=== PATIENT | female | born 1980 | race Caucasian/White ===

== ENCOUNTER → 2016-07-17 | Outpatient (CLI) | payer OTHER ==
[~2016-07-17] MED LIST: /HALO5TAB OR; ABIL5TAB OR; ATARAX OR; ATIV1TAB2 OR; COGE1INJ PO; DEPA250T2 OR; DEPA250T3 OR; DEPA500T OR; GEOD60CA OR; HALDOL PO; HYDR10TA3 OR; Klonopin; SAPHRIS SL; SERO400T OR; VIST25CA OR; saphris SL
[2016-07-17 15:47] LABS: TOTAL PROTEIN 6.6 GM/DL (6.4-8.2)
== END ==
LOC: M LAB 14:44
PROVIDERS: ATTEND Psychiatry & Neurology Neurology
DX: M54.5 Low back pain (principal)

== ENCOUNTER → 2017-06-05 | Outpatient (REF) | payer OTHER | LOC: M SFHCWAGY 09:25 | PROVIDERS: ATTEND Nurse Practitioner Women's Health | DX: Z12.4 Encounter for screening for malignant neoplasm of cervix (principal) ==

== ENCOUNTER → 2017-11-19 | Outpatient (REF) | payer OTHER ==
[2017-11-19 18:23] LABS: LIPASE 247 U/L (73-393)
[2017-11-19 18:23] LABS: AMYLASE 80 U/L (25-115)
[2017-11-20 08:10] LABS: CONTROL LINE HPYORI INT CTR LINE PRESENT; H PYLORI QUALITATIVE IgG NEGATIVE (NEGATIVE)
== END ==
LOC: M LAB REF 17:38
DX: R10.11 Right upper quadrant pain (principal)

== ENCOUNTER → 2018-01-21 | Outpatient (CLI) | payer OTHER | LOC: M WHC 14:02 | DX: Z30.431 Encounter for routine checking of intrauterine contraceptive device (principal); N92.1 Excessive and frequent menstruation with irregular cycle | CPT/HCPCS: 76830 ==

== ENCOUNTER 2018-09-02 01:37 | Emergency (ER) | payer OTHER ==
[~2018-09-02] VITALS: Ht 162.6 cm; Wt 81.8 kg
[2018-09-02] MEDS ORDERED: FLUO10TA30 (01:49)
[2018-09-02] MEDS ORDERED: LATU80TA PO (01:49)
[2018-09-02] MEDS ORDERED: LUNE3TAB36 PO (01:49)
[2018-09-02] MEDS ORDERED: NAPR-885 (01:49)
[2018-09-02] MEDS ORDERED: ESZO1TAB39 (01:49)
[2018-09-02] MEDS ORDERED: LORazepam 1 MG TAB PO ONE (04:30)
[2018-09-02] MEDS ORDERED: ATIV1TAB7 PO (04:37)
[2018-09-02 04:59] VITALS: BP 136/64
== END 2018-09-02 05:01 | disposition home or self-care (01) ==
LOC: M ED 01:37
DX: F31.9 Bipolar disorder, unspecified (principal); F41.1 Generalized anxiety disorder; Z91.018 Allergy to other foods; Z79.899 Other long term (current) drug therapy; Z79.1 Long term (current) use of non-steroidal anti-inflammatories (NSAID)

== ENCOUNTER → 2018-09-22 | Outpatient (CLI) | payer OTHER ==
[~2018-09-22] MED LIST changes: +ATIV1TAB7 PO; +ESZO1TAB39; +FLUO10TA30; +LATU80TA PO; +LUNE3TAB36 PO; +NAPR-885
[2018-09-22 11:09] LABS: BASO # 0.1 10^3/uL (0.0-0.2); BASO % 2.1 % (0.0-1.0); EOS # 0.2 10^3/uL (0.0-0.50); EOS % 3.6 % (0.0-3.0); HEMATOCRIT 37.5 % (36.0-47.0); LYMPH # 1.8 10^3/uL (1.5-4.5); LYMPH % 37.4 % (24.0-44.0); MEAN CORPUSCULAR HEMOGLOBIN 27.9 pg (27.0-33.0); MEAN CORPUSCULAR VOLUME 87.2 fl (80.0-96.0); MONO # 0.3 10^3/uL (0.0-0.8); MONO % 6.8 % (0.0-5.0); NEUTROPHILS # 2.3 10^3/uL (1.8-7.7); NEUTROPHILS % 49.5 % (36.0-66.0); PLATELET COUNT, AUTOMATED 374 10^3/uL (150-450); WHITE BLOOD COUNT 4.7 10^3/uL (4.0-10.0)
[2018-09-22 11:41] LABS: ALBUMIN 3.2 GM/DL (3.2-5.2); BILIRUBIN,DIRECT 0.2 MG/DL (0.0-0.2); BILIRUBIN,TOTAL 0.6 MG/DL (0.2-1.0); FREE T3 2.5 PG/ML (2.2-4.0); THYROID STIMULATING HORMONE 0.804 uIU/ML (0.358-3.740); THYROXINE (T4) 8.3 UG/DL (4.5-12.0); TOTAL PROTEIN 6.3 GM/DL (6.4-8.2); VALPROIC ACID (DEPAKOTE) 58.9 UG/ML (50.0-100.0)
== END ==
LOC: M LAB 10:44
PROVIDERS: ATTEND Anesthesiology Pain Medicine
DX: Z79.899 Other long term (current) drug therapy (principal)

== ENCOUNTER → 2019-03-08 | Outpatient (CLI) | payer OTHER ==
[~2019-03-08] MED LIST changes: -/HALO5TAB OR; +HALO1TAB21 OR
--- NOTE | 2019-03-09 10:51 | REP ---
Right knee five views : There is no fracture or dislocation. Mineralization and joint spaces are normal. There are no calcifications or foreign bodies. Impression: Negative right knee . Electronically Signed by Aníbal Donovan MD 03/09/2019 08:26 A
== END ==
LOC: M RAD 18:48
PROVIDERS: ATTEND Physician Assistant Medical
DX: M25.561 Pain in right knee (principal)

== ENCOUNTER → 2019-05-28 | Outpatient (CLI) | payer OTHER ==
--- NOTE | 2019-05-28 11:33 | REPMRS ---
Patient History The patient states she had a clinical breast exam in 12/2018. Patient is nulliparous. No known family history of cancer. Taking hormonal contraceptives for 9 years. Digital Woman Screen Mammo: May 28, 2019 - Exam #: [id number] Bilateral CC and MLO view(s) were taken. Technologist: Amy Asher, Technologist No prior studies available for comparison. FINDINGS: The breast tissue is heterogeneously dense. This may lower the sensitivity of mammography. There is no evidence of dominant mass, architectural distortion, or grouped microcalcification typical of malignancy. 3-D tomosynthesis shows no additional findings. Assessment: BI-RADS/ACR category 1 mammogram. Negative Mammogram. Recommendation Routine screening mammogram of both breasts in 1 year (for women over age 40). This patient's Lifetime Breast Cancer RIsk is estimated at 14.7 %. This mammogram was interpreted with the aid of an FDA-approved computer-aided dectection system. Electronically Signed By: Tony Zeng MD 05/28/19 [id number]
== END ==
LOC: M WHC 08:34
PROVIDERS: ATTEND Nurse Practitioner Women's Health
DX: Z12.31 Encounter for screening mammogram for malignant neoplasm of breast (principal); Z79.3 Long term (current) use of hormonal contraceptives

== ENCOUNTER → 2019-08-15 | Outpatient (REF) | payer OTHER | LOC: M LAB REF 16:32 | PROVIDERS: ATTEND Nurse Practitioner Adult Health | DX: F31.9 Bipolar disorder, unspecified (principal) ==

== ENCOUNTER → 2019-08-27 | Outpatient (REF) | payer OTHER | LOC: M SFHCWAGY 19:12 | PROVIDERS: ATTEND Nurse Practitioner Women's Health | DX: Z12.4 Encounter for screening for malignant neoplasm of cervix (principal) ==

== ENCOUNTER → 2020-03-27 | Outpatient (CLI) | payer OTHER ==
[~2020-03-27] MED LIST changes: -ESZO1TAB39; +ESZO1TAB8
--- NOTE | 2020-03-27 10:59 | REPVR ---
PROCEDURE INFORMATION: Exam: XR Cervical Spine, 6 or More Views Exam date and time: 03/27/20 (10:44am) Age: 39 years old Clinical indication: Neck pain. Fell downstairs. TECHNIQUE: Imaging protocol: XR of the cervical spine, 6 or more views COMPARISON: No relevant prior studies available FINDINGS: No acute fracture. No significant malalignment. Bony encroachment on right-sided neural foramina C3-C4 and especially C4-C5. The left-sided neural foramina are preserved. Stable alignment on flexion and extension views. Prevertebral soft tissues are normal. IMPRESSION: No acute findings. Stable alignment on flexion and extension views. See additional comments above. Electronically signed by: Carmen East On 03/27/2020 10:59:36 AM
== END ==
LOC: M RAD 10:23
PROVIDERS: ATTEND Physician Assistant
DX: M54.2 Cervicalgia (principal)

== ENCOUNTER → 2020-04-10 | Outpatient (CLI) | payer OTHER ==
[2020-04-10 09:01] LABS: BASO # 0.1 10^3/uL (0.0-0.2); BASO % 1.7 % (0.0-1.0); EOS # 0.3 10^3/uL (0.0-0.5); EOS % 5.2 % (0.0-3.0); HEMATOCRIT 36.9 % (36.0-47.0); LYMPH # 1.8 10^3/uL (1.5-5.0); LYMPH % 33.7 % (24.0-44.0); MEAN CORPUSCULAR HEMOGLOBIN 25.1 pg (27.0-33.0); MEAN CORPUSCULAR HGB CONC 29.8 g/dl (32.0-36.5); MEAN CORPUSCULAR VOLUME 84.1 fl (80.0-96.0); MONO # 0.4 10^3/uL (0.0-0.8); MONO % 6.5 % (0.0-5.0); NEUTROPHILS # 2.8 10^3/uL (1.5-8.5); NEUTROPHILS % 52.5 % (36.0-66.0); PLATELET COUNT, AUTOMATED 426 10^3/uL (150-450); RED BLOOD COUNT 4.39 10^6/uL (4.00-5.40); WHITE BLOOD COUNT 5.4 10^3/uL (4.0-10.0)
[2020-04-10 09:30] LABS: BILIRUBIN,DIRECT 0.2 MG/DL (0.0-0.2); BILIRUBIN,TOTAL 0.6 MG/DL (0.2-1.0); TOTAL PROTEIN 6.5 GM/DL (6.4-8.2); VALPROIC ACID (DEPAKOTE) 51.9 UG/ML (50.0-100.0)
== END ==
LOC: M LAB 08:31
PROVIDERS: ATTEND Anesthesiology Pain Medicine
DX: Z51.81 Encounter for therapeutic drug level monitoring (principal); Z79.899 Other long term (current) drug therapy

== ENCOUNTER → 2021-01-15 | Outpatient (CLI) | payer OTHER ==
[2021-01-15 10:44] LABS: PLATELET COUNT, AUTOMATED 462 10^3/uL (150-450)
[2021-01-15 11:14] LABS: ALBUMIN 3.2 GM/DL (3.2-5.2); BILIRUBIN,DIRECT 0.1 MG/DL (0.0-0.2); BILIRUBIN,TOTAL 0.6 MG/DL (0.2-1.0); FREE T3 2.3 PG/ML (2.2-4.0); THYROID STIMULATING HORMONE 0.528 uIU/ML (0.358-3.740); THYROXINE (T4) 7.6 UG/DL (4.5-12.0); TOTAL PROTEIN 6.9 GM/DL (6.4-8.2); VALPROIC ACID (DEPAKOTE) 66.4 UG/ML (50.0-100.0)
== END ==
LOC: M LAB 09:51
PROVIDERS: ATTEND Anesthesiology Pain Medicine
DX: F31.9 Bipolar disorder, unspecified (principal); Z51.81 Encounter for therapeutic drug level monitoring

== ENCOUNTER → 2021-01-24 | Outpatient (CLI) | payer OTHER ==
[~2021-01-24] MED LIST changes: -LATU80TA PO; +LATU80TA2 PO
== END ==
LOC: M WHC 08:22
PROVIDERS: ATTEND Nurse Practitioner Women's Health
DX: Z12.31 Encounter for screening mammogram for malignant neoplasm of breast (principal)

== ENCOUNTER → 2022-02-15 | Outpatient (CLI) | payer OTHER | LOC: M WHC 09:17 | PROVIDERS: ATTEND Advanced Practice Midwife | DX: Z12.31 Encounter for screening mammogram for malignant neoplasm of breast (principal) ==

== ENCOUNTER → 2022-02-15 | Outpatient (REF) | payer OTHER ==
[2022-02-15 16:14] LABS: GC DNA AMPLIFICATION NEGATIVE (NEGATIVE)
== END ==
LOC: M PLALAB 09:37
PROVIDERS: ATTEND Advanced Practice Midwife
DX: Z11.3 Encounter for screening for infections with a predominantly sexual mode of transmission (principal)

== ENCOUNTER → 2022-10-13 | Outpatient (REF) | payer OTHER | LOC: M LAB REF 16:14 | PROVIDERS: ATTEND Physician Assistant | DX: J02.9 Acute pharyngitis, unspecified (principal) ==

== ENCOUNTER → 2023-02-19 | Outpatient (CLI) | payer OTHER | LOC: M WHC 12:50 | PROVIDERS: ATTEND Nurse Practitioner Adult Health | DX: Z12.31 Encounter for screening mammogram for malignant neoplasm of breast (principal) ==

== ENCOUNTER 2023-03-29 12:20 | Emergency (ER) | payer OTHER ==
[~2023-03-29] VITALS: Ht 165.1 cm; Wt 83.6 kg
[2023-03-29] MEDS ORDERED: ZINC220CA PO (12:38)
[2023-03-29] MEDS ORDERED: MAGN400C2 PO (12:38)
[2023-03-29] MEDS ORDERED: CLON0.5T2 PO (12:38)
[2023-03-29 13:54] LABS: HEMATOCRIT 41.9 % (36.0-47.0); MEAN CORPUSCULAR HEMOGLOBIN 25.1 pg (27.0-33.0); MEAN CORPUSCULAR VOLUME 80.9 fl (80.0-96.0); PLATELET COUNT, AUTOMATED 469 10^3/uL (150-450); RED BLOOD COUNT 5.18 10^6/uL (4.00-5.40); WHITE BLOOD COUNT 11.9 10^3/uL (4.0-10.0)
[2023-03-29 14:14] LABS: ETHYL ALCOHOL (ETHANOL) < 0.003 % (0.000-0.010)
[2023-03-29 14:15] LABS: ACETAMINOPHEN LEVEL < 2.0 UG/ML (10.0-20.0); SALICYLATE LEVEL < 3.0 MG/DL (<30)
[2023-03-29 14:16] LABS: ALKALINE PHOSPHATASE 68 U/L (46-116); ALT/SGPT 59 U/L (7.0-40); AST/SGOT 32 U/L (<34); BILIRUBIN,DIRECT 0.5 MG/DL (<0.4); BILIRUBIN,TOTAL 1.3 MG/DL (0.3-1.2); BLOOD UREA NITROGEN 12 MG/DL (9-23); CALCIUM LEVEL 9.3 MG/DL (8.5-10.1); CARBON DIOXIDE LEVEL 26 MMOL/L (20-31); CHLORIDE LEVEL 103 MMOL/L (98-107); CREATININE FOR GFR 0.67 MG/DL (0.55-1.30); GLOMERULAR FILTRATION RATE > 60.0 (>58); GLUCOSE, FASTING 100 MG/DL (60-100); POTASSIUM SERUM 4.6 MMOL/L (3.5-5.1); SODIUM LEVEL 137 MMOL/L (136-145); TOTAL PROTEIN 7.3 G/DL (5.7-8.2)
[2023-03-29 14:18] LABS: THYROID STIMULATING HORMONE 1.004 uIU/ML (0.55-4.78)
[2023-03-29 14:24] LABS: AMPHETAMINES LEVEL URINE NEGATIVE (NEGATIVE); BARBITURATES URINE NEGATIVE (NEGATIVE); BENZODIAZEPINES URINE NEGATIVE (NEGATIVE); COCAINE METABOLITE URINE NEGATIVE (NEGATIVE); METHADONE URINE NEGATIVE (NEGATIVE)
[2023-03-29 14:25] LABS: CANNABINOIDS URINE NEGATIVE (NEGATIVE); OPIATES URINE NEGATIVE (NEGATIVE); PHENCYCLIDINE URINE NEGATIVE (NEGATIVE)
[2023-03-29 14:33] LABS: HCG, SERUM QUALITATIVE NEGATIVE (NEGATIVE)
[2023-03-29] MEDS ORDERED: MAGNESIUM OXIDE 400MG TAB (MAG-OX) PO ONE (20:35)
[2023-03-29] MEDS ORDERED: clonazePAM 0.5 MG TAB PO PRN (20:35)
[2023-03-29] MEDS: clonazePAM 0.5 MG TAB PO PRN (20:54)
[2023-03-29] MEDS: LURASIDONE HCL 40MG TAB (LATUDA) PO SCH (20:54)
[2023-03-29] MEDS ORDERED: LORazepam 1 MG TAB PO STA (23:41)
[2023-03-30] MEDS ORDERED: ZINC220CA PO (01:12)
[2023-03-30] MEDS ORDERED: ESZO1TAB6 PO (01:12)
[2023-03-30] MEDS ORDERED: LATU80TA2 PO (01:12)
[2023-03-30] MEDS ORDERED: RA M10TA PO (01:12)
[2023-03-30] MEDS ORDERED: MAGN400T2 PO (01:12)
[2023-03-30] MEDS ORDERED: HOME MED LIST COMPLETE! XX SCH (01:15)
[2023-03-30] MEDS ORDERED: ZINC SULFATE 220 MG CAP PO SCH (09:00)
[2023-03-30] MEDS ORDERED: PILL CUTTER 1 EACH XX ONE (22:06)
[2023-03-30] MEDS: clonazePAM 0.5 MG TAB PO PRN (22:11)
[2023-03-30] MEDS: LURASIDONE HCL 40MG TAB (LATUDA) PO SCH (22:11)
[2023-03-30] MEDS: ZINC SULFATE 220 MG CAP PO SCH (22:11)
[2023-03-31] MEDS ORDERED: LORazepam 1 MG TAB PO STA (00:36)
[2023-03-31] MEDS ORDERED: OLANZapine ORAL DISINTEGRATING TAB 5MG PO ONE (05:50)
[2023-03-31] MEDS: LURASIDONE HCL 40MG TAB (LATUDA) PO SCH (21:09)
[2023-03-31] MEDS: ZINC SULFATE 220 MG CAP PO SCH (21:09)
[2023-03-31] MEDS: clonazePAM 0.5 MG TAB PO PRN (21:10)
[2023-04-01] MEDS: LURASIDONE HCL 40MG TAB (LATUDA) PO SCH (20:45)
[2023-04-01] MEDS: ZINC SULFATE 220 MG CAP PO SCH (20:45)
[2023-04-02] MEDS: clonazePAM 0.5 MG TAB PO PRN (01:42)
[2023-04-02 06:36] VITALS: BP 114/74; TEMP 97.3; O2SAT 99
== END 2023-04-02 14:01 | disposition home or self-care (01) ==
LOC: M ED 12:20
DX: F31.9 Bipolar disorder, unspecified (principal); Z79.818 Long term (current) use of other agents affecting estrogen receptors and estrogen levels; Z79.899 Other long term (current) drug therapy

== ENCOUNTER → 2023-04-04 | Outpatient (REF) | payer OTHER ==
[~2023-04-04] MED LIST changes: +CLON0.5T2 PO; +ESZO1TAB6 PO; +MAGN400C2 PO; +MAGN400T2 PO; +RA M10TA PO; +ZINC220CA PO
== END ==
LOC: M LAB REF 16:37
PROVIDERS: ATTEND Internal Medicine
DX: M25.50 Pain in unspecified joint (principal)

== ENCOUNTER → 2023-06-15 | Outpatient (REF) ==
[~2023-06-15] MED LIST changes: -LUNE3TAB36 PO; +LUNE3TAB50 PO
== END ==
LOC: M LAB 12:59
PROVIDERS: ATTEND Nurse Practitioner Adult Health
DX: Z00.00 Encounter for general adult medical examination without abnormal findings (principal)

== ENCOUNTER 2023-11-24 11:31 | Inpatient (IN) | payer OTHER ==
[~2023-11-24] VITALS: Ht 165.1 cm; Wt 81.8 kg
[2023-11-24 13:14] LABS: HEMATOCRIT 40.1 % (36.0-47.0); HEMOGLOBIN 12.7 g/dl (12.0-15.5); MEAN CORPUSCULAR HEMOGLOBIN 26.3 pg (27.0-33.0); MEAN CORPUSCULAR HGB CONC 31.7 g/dl (32.0-36.5); PLATELET COUNT, AUTOMATED 452 10^3/uL (150-450); RED BLOOD COUNT 4.83 10^6/uL (4.00-5.40); WHITE BLOOD COUNT 12.2 10^3/uL (4.0-10.0)
[2023-11-24 13:45] LABS: ETHYL ALCOHOL (ETHANOL) < 0.003 % (0.000-0.010)
[2023-11-24 13:46] LABS: SALICYLATE LEVEL < 3.0 MG/DL (<30)
[2023-11-24 13:47] LABS: ALBUMIN 3.5 G/DL (3.2-5.2); ALKALINE PHOSPHATASE 69 U/L (46-116); ALT/SGPT 50 U/L (7.0-40); AST/SGOT 47 U/L (<34); BILIRUBIN,DIRECT 0.6 MG/DL (<0.4); BILIRUBIN,TOTAL 1.8 MG/DL (0.3-1.2); BLOOD UREA NITROGEN 17 MG/DL (9-23); CALCIUM LEVEL 8.8 MG/DL (8.5-10.1); CARBON DIOXIDE LEVEL 25 MMOL/L (20-31); CHLORIDE LEVEL 104 MMOL/L (98-107); CREATININE FOR GFR 0.62 MG/DL (0.55-1.30); GLOMERULAR FILTRATION RATE > 60.0 (>58); GLUCOSE, FASTING 108 MG/DL (60-100); POTASSIUM SERUM 4.6 MMOL/L (3.5-5.1); SODIUM LEVEL 137 MMOL/L (136-145); TOTAL PROTEIN 6.8 G/DL (5.7-8.2)
[2023-11-24 13:48] LABS: THYROID STIMULATING HORMONE 1.485 uIU/ML (0.55-4.78)
[2023-11-24 14:14] LABS: HCG, SERUM QUALITATIVE NEGATIVE (NEGATIVE)
[2023-11-24 18:08] LABS: AMPHETAMINES LEVEL URINE NEGATIVE (NEGATIVE); BARBITURATES URINE NEGATIVE (NEGATIVE); BENZODIAZEPINES URINE NEGATIVE (NEGATIVE); CANNABINOIDS URINE NEGATIVE (NEGATIVE); COCAINE METABOLITE URINE NEGATIVE (NEGATIVE); METHADONE URINE NEGATIVE (NEGATIVE); OPIATES URINE NEGATIVE (NEGATIVE); PHENCYCLIDINE URINE NEGATIVE (NEGATIVE)
[2023-11-24] MEDS: clonazePAM 0.5 MG TAB PO ONE (21:00)
[2023-11-25] MEDS ORDERED: HOME MED LIST COMPLETE! XX SCH (10:50)
[2023-11-25] MEDS: clonazePAM 0.5 MG TAB PO PRN (22:25)
[2023-11-26] MEDS ORDERED: traZODone 50 MG TAB PO PRN (12:05)
[2023-11-26] MEDS ORDERED: IBUPROFEN 400MG TAB PO PRN (12:05)
[2023-11-26] MEDS ORDERED: ACETAMINOPHEN TAB 650MG DOSE (2X325MG) PO PRN (12:05)
[2023-11-26] MEDS ORDERED: diphenhydrAMINE 25MG CAP PO PRN (12:05)
[2023-11-26] MEDS ORDERED: MAALOX 30 ML SUSP *UDC PO PRN (12:05)
[2023-11-26] MEDS ORDERED: MOM 30ML SUSPENSION UDC PO PRN (12:05)
[2023-11-26 14:25] VITALS: BP 120/68; TEMP 97.6; O2SAT 97
[2023-11-27 06:32] VITALS: BP 108/58; TEMP 97; O2SAT 100
== END 2023-11-27 11:42 | disposition home or self-care (01) | DRG 755 ==
LOC: M ED 11:31 → EDBD 11:31 → M ED INP 11-26 12:03 → M PSY 11-26 13:51
PROVIDERS: ADMIT Student in an Organized Health Care Education/Training Program; ATTEND Student in an Organized Health Care Education/Training Program
DX: F43.22 Adjustment disorder with anxiety (principal); D72.829 Elevated white blood cell count, unspecified; F60.3 Borderline personality disorder; Z79.899 Other long term (current) drug therapy; F31.9 Bipolar disorder, unspecified

== ENCOUNTER → 2023-12-04 | Outpatient (REF) | payer OTHER ==
[2023-12-04 12:21] LABS: PERCENT SATURATION 9.5 % (13.2-45.0)
[2023-12-04 12:24] LABS: FERRITIN 6.4 NG/ML (7.3-270.7)
== END ==
LOC: M LAB REF 11:37
PROVIDERS: ATTEND Internal Medicine
DX: D50.9 Iron deficiency anemia, unspecified (principal)

== ENCOUNTER 2024-10-04 04:30 | Emergency (ER) | payer OTHER ==
[~2024-10-04] VITALS: Ht 162.6 cm; Wt 81.6 kg
[2024-10-04 06:30] LABS: HEMATOCRIT 38.7 % (36.0-47.0); HEMOGLOBIN 12.1 g/dl (12.0-15.5); MEAN CORPUSCULAR HEMOGLOBIN 26.3 pg (27.0-33.0); MEAN CORPUSCULAR HGB CONC 31.3 g/dl (32.0-36.5); MEAN CORPUSCULAR VOLUME 84.1 fl (80.0-96.0); PLATELET COUNT, AUTOMATED 421 10^3/uL (150-450); WHITE BLOOD COUNT 10.5 10^3/uL (4.0-10.0)
[2024-10-04 06:50] LABS: ETHYL ALCOHOL (ETHANOL) 0.008 % (0.000-0.010)
[2024-10-04 06:52] LABS: ALBUMIN 3.7 G/DL (3.2-5.2); ALKALINE PHOSPHATASE 93 U/L (35-104); ALT/SGPT 45 U/L (7.0-40); AST/SGOT 28 U/L (<34); BILIRUBIN,DIRECT 0.3 MG/DL (<0.4); BILIRUBIN,TOTAL 0.8 MG/DL (0.3-1.2); BLOOD UREA NITROGEN 17 MG/DL (9-23); CALCIUM LEVEL 9.7 MG/DL (8.5-10.1); CARBON DIOXIDE LEVEL 25 MMOL/L (20-31); CHLORIDE LEVEL 105 MMOL/L (98-107); CREATININE FOR GFR 0.67 MG/DL (0.55-1.30); GLOMERULAR FILTRATION RATE > 60.0 (>58); GLUCOSE, FASTING 161 MG/DL (60-100); POTASSIUM SERUM 4.1 MMOL/L (3.5-5.1); SALICYLATE LEVEL < 3.0 MG/DL (<30); SODIUM LEVEL 138 MMOL/L (136-145); TOTAL PROTEIN 7.1 G/DL (5.7-8.2)
[2024-10-04 06:54] LABS: THYROID STIMULATING HORMONE 1.619 uIU/ML (0.55-4.78)
[2024-10-04 07:01] LABS: AMPHETAMINES LEVEL URINE NEGATIVE (NEGATIVE); BARBITURATES URINE NEGATIVE (NEGATIVE); BENZODIAZEPINES URINE NEGATIVE (NEGATIVE); CANNABINOIDS URINE NEGATIVE (NEGATIVE); COCAINE METABOLITE URINE NEGATIVE (NEGATIVE); METHADONE URINE NEGATIVE (NEGATIVE); OPIATES URINE NEGATIVE (NEGATIVE); PHENCYCLIDINE URINE NEGATIVE (NEGATIVE)
[2024-10-04 07:40] LABS: HCG, SERUM QUALITATIVE NEGATIVE (NEGATIVE)
[2024-10-04 07:58] VITALS: BP 126/76; TEMP 96.8; O2SAT 98
[2024-10-04] MEDS ORDERED: CLON0.5T17 PO (16:50)
== END 2024-10-04 08:05 | disposition home or self-care (01) ==
LOC: M ED 04:30
DX: F41.9 Anxiety disorder, unspecified (principal); Z79.899 Other long term (current) drug therapy

== ENCOUNTER 2024-10-04 16:34 | Emergency (ER) | payer OTHER ==
[~2024-10-04] VITALS: Ht 162.6 cm; Wt 81.7 kg
[2024-10-04 16:41] VITALS: BP 129/71; TEMP 99.3; O2SAT 97
[2024-10-04] MEDS ORDERED: CLON0.5T17 PO (16:50)
== END 2024-10-04 20:30 | disposition home or self-care (01) ==
LOC: M ED 16:34
DX: F41.9 Anxiety disorder, unspecified (principal); F31.9 Bipolar disorder, unspecified; F32.A Depression, unspecified; Z79.899 Other long term (current) drug therapy

== ENCOUNTER 2024-10-06 09:54 | Inpatient (IN) | payer OTHER ==
[~2024-10-06] VITALS: Ht 162.6 cm; Wt 76.6 kg
[~2024-10-06 09:54] MED LIST changes: +CLON0.5T17 PO
[2024-10-06 10:57] LABS: HEMATOCRIT 35.5 % (36.0-47.0); HEMOGLOBIN 11.1 g/dl (12.0-15.5); MEAN CORPUSCULAR HEMOGLOBIN 25.4 pg (27.0-33.0); MEAN CORPUSCULAR HGB CONC 31.3 g/dl (32.0-36.5); MEAN CORPUSCULAR VOLUME 81.2 fl (80.0-96.0); PLATELET COUNT, AUTOMATED 494 10^3/uL (150-450); RED BLOOD COUNT 4.37 10^6/uL (4.00-5.40); WHITE BLOOD COUNT 13.4 10^3/uL (4.0-10.0)
[2024-10-06 11:24] LABS: AMPHETAMINES LEVEL URINE NEGATIVE (NEGATIVE); BARBITURATES URINE NEGATIVE (NEGATIVE); BENZODIAZEPINES URINE NEGATIVE (NEGATIVE); CANNABINOIDS URINE NEGATIVE (NEGATIVE); COCAINE METABOLITE URINE NEGATIVE (NEGATIVE); METHADONE URINE NEGATIVE (NEGATIVE); OPIATES URINE NEGATIVE (NEGATIVE); PHENCYCLIDINE URINE NEGATIVE (NEGATIVE)
[2024-10-06 11:26] LABS: ETHYL ALCOHOL (ETHANOL) < 0.003 % (0.000-0.010)
[2024-10-06 11:28] LABS: SALICYLATE LEVEL < 3.0 MG/DL (<30)
[2024-10-06 11:30] LABS: ALBUMIN 3.8 G/DL (3.2-5.2); ALKALINE PHOSPHATASE 73 U/L (35-104); ALT/SGPT 114 U/L (7.0-40); AST/SGOT 262 U/L (<34); BILIRUBIN,DIRECT 0.9 MG/DL (<0.4); BILIRUBIN,TOTAL 2.4 MG/DL (0.3-1.2); BLOOD UREA NITROGEN 10 MG/DL (9-23); CALCIUM LEVEL 9.2 MG/DL (8.5-10.1); CARBON DIOXIDE LEVEL 24 MMOL/L (20-31); CHLORIDE LEVEL 100 MMOL/L (98-107); CREATININE FOR GFR 0.56 MG/DL (0.55-1.30); GLOMERULAR FILTRATION RATE > 60.0 (>58); GLUCOSE, FASTING 99 MG/DL (60-100); POTASSIUM SERUM 4.2 MMOL/L (3.5-5.1); SODIUM LEVEL 137 MMOL/L (136-145); THYROID STIMULATING HORMONE 1.447 uIU/ML (0.55-4.78); TOTAL PROTEIN 7.1 G/DL (5.7-8.2)
[2024-10-06 11:34] LABS: HCG, SERUM QUALITATIVE NEGATIVE (NEGATIVE)
[2024-10-06] MEDS ORDERED: CLON0.5T2 PO (11:46)
[2024-10-06] MEDS ORDERED: HOME MED LIST COMPLETE! XX SCH (11:50)
[2024-10-06] MEDS: clonazePAM 0.5 MG TAB PO ONE (13:41)
[2024-10-06 14:09] LABS: HEPATITIS B SURFACE ANTIGEN NEGATIVE (NEGATIVE)
[2024-10-06 14:29] LABS: HEPATITIS C VIRUS ABY INDEX 0.04 INDEX (<0.8)
[2024-10-06 14:30] LABS: HEPATITIS B CORE ANTIBODY IGM NEGATIVE (NEGATIVE)
[2024-10-06] MEDS: IBUPROFEN 600MG TAB PO ONE (14:44)
[2024-10-06 16:35] VITALS: BP 118/94; TEMP 97.8; O2SAT 100
[2024-10-06] MEDS ORDERED: MOM 30ML SUSPENSION UDC PO PRN (16:50)
[2024-10-06] MEDS ORDERED: ACETAMINOPHEN 325 MG TAB PO PRN (16:50)
[2024-10-06] MEDS: OLANZapine ORAL DISINTEGRATING TAB 5MG PO PRN (18:36)
[2024-10-06] MEDS: MAGNESIUM OXIDE 400MG TAB (MAG-OX) PO SCH (20:47)
[2024-10-06] MEDS: traZODone 50 MG TAB PO PRN (20:47)
[2024-10-06] MEDS: ZINC SULFATE 220 MG CAP PO SCH (20:48)
[2024-10-06] MEDS: clonazePAM 0.5 MG TAB PO SCH (20:48)
[2024-10-06] MEDS: LURASIDONE HCL 40MG TAB (LATUDA) PO SCH (20:48)
[2024-10-07 06:23] VITALS: BP 123/76; TEMP 98.3; O2SAT 100
[2024-10-07 15:16] VITALS: BP 127/74; TEMP 97.6; O2SAT 98
[2024-10-07] MEDS: LURASIDONE HCL 40MG TAB (LATUDA) PO SCH (17:40)
[2024-10-07] MEDS: FLUZONE VACCINE TRIVALENT PF(2024-25) 0.5ML SYRINGE IM.IMMUN ONE (17:41)
[2024-10-08] MEDS: LORazepam 1 MG TAB PO ONE (00:18)
[2024-10-08 06:40] VITALS: BP 134/86; TEMP 97.4; O2SAT 98
[2024-10-08 06:44] LABS: BASO # 0.1 10^3/uL (0.0-0.2); BASO % 1.3 % (0.0-1.0); EOS # 0.3 10^3/uL (0.0-0.5); EOS % 4.3 % (0.0-3.0); HEMATOCRIT 32.8 % (36.0-47.0); HEMOGLOBIN 10.5 g/dl (12.0-15.5); LYMPH # 1.7 10^3/uL (1.5-5.0); LYMPH % 24.7 % (24.0-44.0); MEAN CORPUSCULAR HEMOGLOBIN 26.4 pg (27.0-33.0); MEAN CORPUSCULAR VOLUME 82.6 fl (80.0-96.0); MONO # 0.6 10^3/uL (0.0-0.8); MONO % 8.2 % (2.0-8.0); NEUTROPHILS # 4.2 10^3/uL (1.5-8.5); NEUTROPHILS % 61.1 % (36.0-66.0); PLATELET COUNT, AUTOMATED 421 10^3/uL (150-450); RED BLOOD COUNT 3.97 10^6/uL (4.00-5.40); WHITE BLOOD COUNT 6.9 10^3/uL (4.0-10.0)
[2024-10-08 07:31] LABS: BILIRUBIN,DIRECT 0.2 MG/DL (<0.4); BILIRUBIN,TOTAL 0.7 MG/DL (0.3-1.2); TOTAL PROTEIN 5.9 G/DL (5.7-8.2)
[2024-10-08 15:08] VITALS: BP 139/85; TEMP 97.1; O2SAT 100
[2024-10-08] MEDS: hydrOXYzine 50 MG TAB PO STA (21:44)
[2024-10-08] MEDS ORDERED: hydrOXYzine 50 MG TAB PO ONE (21:50)
[2024-10-08] MEDS: diphenhydrAMINE 50MG CAP PO PRN (22:11)
[2024-10-09] MEDS: LORazepam 1 MG TAB PO ONE (01:54)
[2024-10-09 06:45] VITALS: BP 132/86; TEMP 97; O2SAT 99
[2024-10-09 14:54] VITALS: BP 138/76; TEMP 96.6; O2SAT 99
[2024-10-09] MEDS: LURASIDONE HCL 40MG TAB (LATUDA) PO SCH (17:45)
[2024-10-10 06:22] VITALS: BP 146/55; TEMP 97.3; O2SAT 98
[2024-10-10] MEDS: risperiDONE 2 MG TAB PO SCH (09:59)
[2024-10-10 15:17] VITALS: BP 130/80; TEMP 97.1; O2SAT 99
[2024-10-10] MEDS: LURASIDONE HCL 40MG TAB (LATUDA) PO SCH (18:00)
[2024-10-10] MEDS: QUEtiapine FUMARATE 25 MG TAB PO SCH (20:30)
[2024-10-10] MEDS: QUEtiapine FUMARATE 50MG TAB PO SCH (20:33)
[2024-10-11 15:47] VITALS: BP 110/58; TEMP 97.8; O2SAT 100
[2024-10-12 14:45] VITALS: BP 100/60; TEMP 97.5; O2SAT 100
[2024-10-13 06:28] VITALS: BP 97/55; TEMP 97.2; O2SAT 98
[2024-10-13] MEDS: risperiDONE 0.5 MG TAB PO SCH (14:12)
[2024-10-13 15:41] VITALS: BP 105/52; TEMP 97.3; O2SAT 98
[2024-10-13] MEDS: QUEtiapine FUMARATE 200 MG TAB PO SCH (20:39)
[2024-10-14 06:34] VITALS: BP 95/49; TEMP 97.7; O2SAT 98
[2024-10-14] MEDS: risperiDONE 0.5 MG TAB PO SCH (08:08)
[2024-10-14 15:39] VITALS: BP 105/60; TEMP 97.1; O2SAT 99
[2024-10-15 06:32] VITALS: BP 131/74; TEMP 97.5; O2SAT 99
[2024-10-15 15:11] VITALS: BP 111/72; TEMP 97.8; O2SAT 99
[2024-10-16 06:29] VITALS: BP 118/67; TEMP 97.7; O2SAT 100
[2024-10-16 15:53] VITALS: BP 100/64; TEMP 97; O2SAT 100
[2024-10-17 16:14] VITALS: BP 111/62; TEMP 98; O2SAT 100
[2024-10-17] MEDS: risperiDONE 2 MG TAB PO SCH (18:50)
[2024-10-18 06:55] VITALS: BP 142/64; TEMP 97.6; O2SAT 97
[2024-10-18 15:47] VITALS: BP 136/78; TEMP 98; O2SAT 100
[2024-10-18] MEDS: LORazepam 1 MG TAB PO PRN (16:50)
[2024-10-19 07:06] VITALS: BP 112/68; TEMP 98; O2SAT 99
[2024-10-19 15:13] VITALS: BP 123/69; TEMP 97.7; O2SAT 100
[2024-10-20 06:38] VITALS: BP 114/59; TEMP 97.7; O2SAT 96
[2024-10-20 15:20] VITALS: BP 114/70; TEMP 97.8; O2SAT 100
[2024-10-21 06:35] VITALS: BP 108/66; TEMP 97.3; O2SAT 98
[2024-10-21 16:04] VITALS: BP 133/76; TEMP 97.5; O2SAT 99
[2024-10-22 06:24] VITALS: BP 96/59; TEMP 97.3; O2SAT 98
[2024-10-22 15:27] VITALS: BP 107/57; TEMP 98.2; O2SAT 100
[2024-10-23 06:46] VITALS: BP 104/63; TEMP 97.8; O2SAT 97
[2024-10-23 14:54] VITALS: BP 123/78; TEMP 97.3; O2SAT 100
[2024-10-24 06:12] VITALS: BP 104/56; TEMP 98.1; O2SAT 100
[2024-10-24] MEDS ORDERED: HYDR-4570 PO (09:08)
[2024-10-24] MEDS ORDERED: DIPH50CA PO (09:08)
[2024-10-24] MEDS ORDERED: ATIV1TAB7 PO (09:08)
[2024-10-24] MEDS ORDERED: OLAN5ZYD PO (09:08)
[2024-10-24] MEDS ORDERED: QUET200T2 PO (09:08)
[2024-10-24] MEDS ORDERED: TRAZ-252 PO (09:08)
[2024-10-24] MEDS ORDERED: RISP2TAB32 PO (09:08)
== END 2024-10-24 10:46 | disposition home or self-care (01) | DRG 751 ==
LOC: M ED 09:54 → M ED INP 14:18 → M PSY 15:32
PROVIDERS: ADMIT Psychiatry & Neurology Psychiatry; ATTEND Psychiatry & Neurology Psychiatry
DX: F29 Unspecified psychosis not due to a substance or known physiological condition (principal); F41.1 Generalized anxiety disorder; D72.829 Elevated white blood cell count, unspecified; R17 Unspecified jaundice; D50.9 Iron deficiency anemia, unspecified; Z79.899 Other long term (current) drug therapy

== ENCOUNTER → 2024-11-05 | Outpatient (REF) | payer OTHER ==
[~2024-11-05] MED LIST changes: +DIPH50CA PO; -FLUO10TA30; +FLUO1TAB2; +HYDR-4570 PO; +OLAN5ZYD PO; +QUET200T2 PO; +RISP2TAB32 PO; +TRAZ-252 PO
[2024-11-05 18:04] LABS: PERCENT SATURATION 5.3 % (13.2-45.0)
[2024-11-05 18:05] LABS: FERRITIN 4.7 NG/ML (7.3-270.7)
== END ==
LOC: M LAB REF 17:10
PROVIDERS: ATTEND Internal Medicine
DX: D50.9 Iron deficiency anemia, unspecified (principal)

== ENCOUNTER 2025-05-09 20:18 | Inpatient (IN) | payer OTHER ==
[~2025-05-09] VITALS: Ht 162.6 cm; Wt 83.0 kg
[~2025-05-09 20:18] MED LIST changes: -DIPH50CA PO; +DIPH50CA31 PO; +HYDR-3364 PO; -HYDR-4570 PO
[2025-05-09] MEDS ORDERED: CLON0.5T17 PO (20:31)
[2025-05-09] MEDS ORDERED: ZIPR40CA27 PO (20:31)
[2025-05-09] MEDS: ALPRAZolam 0.5 MG TAB PO ONE (21:51)
[2025-05-09 21:52] LABS: PLATELET COUNT, AUTOMATED 398 10^3/uL (150-450)
[2025-05-09 22:15] LABS: ETHYL ALCOHOL (ETHANOL) 0.004 % (0.000-0.010)
[2025-05-09 22:17] LABS: ALT/SGPT 29 U/L (7.0-40); AST/SGOT 35 U/L (<34); CALCIUM LEVEL 8.8 MG/DL (8.5-10.1); CARBON DIOXIDE LEVEL 22 MMOL/L (20-31); CHLORIDE LEVEL 106 MMOL/L (98-107); CREATININE FOR GFR 0.65 MG/DL (0.55-1.30); GLOMERULAR FILTRATION RATE > 90.0 (>58); POTASSIUM SERUM 3.9 MMOL/L (3.5-5.1); SALICYLATE LEVEL < 3.0 MG/DL (<30); SODIUM LEVEL 140 MMOL/L (136-145)
[2025-05-09 22:24] LABS: HCG, SERUM QUALITATIVE NEGATIVE (NEGATIVE)
[2025-05-10 00:54] LABS: AMPHETAMINES LEVEL URINE NEGATIVE (NEGATIVE); BARBITURATES URINE NEGATIVE (NEGATIVE); BENZODIAZEPINES URINE NEGATIVE (NEGATIVE)
[2025-05-10 00:55] LABS: CANNABINOIDS URINE NEGATIVE (NEGATIVE); COCAINE METABOLITE URINE NEGATIVE (NEGATIVE); METHADONE URINE NEGATIVE (NEGATIVE); OPIATES URINE NEGATIVE (NEGATIVE); PHENCYCLIDINE URINE NEGATIVE (NEGATIVE)
[2025-05-10] MEDS ORDERED: IBUPROFEN 400 MG TAB PO PRN (01:35)
[2025-05-10] MEDS ORDERED: MOM 30 ML SUSPENSION UDC PO PRN (01:35)
[2025-05-10] MEDS ORDERED: QUET150T18 PO (06:09)
[2025-05-10] MEDS ORDERED: TRAZ-252 PO (06:09)
[2025-05-10] MEDS ORDERED: ZIPR80CA31 PO (06:13)
[2025-05-10] MEDS ORDERED: HOME MED LIST COMPLETE! XX SCH (06:15)
[2025-05-10] MEDS: HALOPERIDOL LACTATE 5 MG/ML VIAL IM STA (06:58)
[2025-05-10] MEDS: diphenhydrAMINE 50 MG/ML VIAL IM ONE (06:59)
[2025-05-10] MEDS: HALOPERIDOL 5 MG TAB PO PRN (11:18)
[2025-05-10] MEDS: OLANZapine ORAL DISINTEGRATING TAB 5MG PO PRN (13:14)
[2025-05-10 14:52] VITALS: BP 131/81; TEMP 97.6
[2025-05-10] MEDS: BENZTROPINE 1 MG TAB PO SCH (19:12)
[2025-05-10] MEDS: clonazePAM 1 MG TAB PO SCH (23:09)
[2025-05-11 06:49] VITALS: BP 132/80; TEMP 97.9; O2SAT 100
[2025-05-11 15:43] VITALS: BP 105/64; TEMP 98; O2SAT 98
[2025-05-11] MEDS: clonazePAM 0.5 MG TAB PO PRN (21:27)
[2025-05-12 06:38] VITALS: BP 129/77; TEMP 97.7; O2SAT 100
[2025-05-12 07:26] LABS: CHOLESTEROL LEVEL 121.0 MG/DL (<200); CHOLESTEROL RISK RATIO 1.94 (<5); LDL CHOLESTEROL 46.2 MG/DL (<100); NON-HDL-C 58.8 MG/DL; TRIGLYCERIDES LEVEL 63.0 MG/DL (<150)
[2025-05-12 15:21] VITALS: BP 113/67; TEMP 97.4; O2SAT 96
[2025-05-12] MEDS: traZODone 50 MG TAB PO PRN (21:05)
[2025-05-12] MEDS: QUEtiapine FUMARATE 50MG TAB PO SCH (21:05)
[2025-05-13 06:00] VITALS: BP 108/61; TEMP 97.8; O2SAT 100
[2025-05-13 15:34] VITALS: BP 128/72; TEMP 97.4; O2SAT 100
[2025-05-14] MEDS: CARIPRAZINE 3MG CAPSULE PO SCH (08:12)
[2025-05-15 07:55] VITALS: BP 122/70; TEMP 97.2; O2SAT 97
[2025-05-15 11:11] LABS: PROLACTIN 5.02 NG/ML
[2025-05-15 11:45] LABS: KETONE, URINE AUTO RFX NEGATIVE (NEGATIVE); NITRITE, URINE AUTO RFX NEGATIVE (NEGATIVE); RBC, URINE AUTO RFX 1 /HPF (0-3); SQUAM EPITHELIAL CELL UR AURFX 5 /HPF (0-6)
[2025-05-15 11:46] LABS: LEUKOCYTE ESTERASE UR AUTO RFX 2+ (NEGATIVE); URINE PREG TEST NEGATIVE (NEGATIVE); WBC, URINE AUTO RFX 12 /HPF (0-3)
[2025-05-15 14:57] VITALS: BP 114/61; TEMP 98.1; O2SAT 97
[2025-05-15 15:40] LABS: HIV 1&2 SCREEN NEGATIVE (NEGATIVE)
[2025-05-15 19:14] LABS: Trichomonas vaginalis (AMP) NOT DETECTED (NEGATIVE)
[2025-05-15 19:38] LABS: GC DNA AMPLIFICATION NEGATIVE (NEGATIVE)
[2025-05-16 06:32] VITALS: BP 131/75; TEMP 97.6; O2SAT 100
[2025-05-16 16:03] VITALS: BP 121/60; TEMP 97.6; O2SAT 100
[2025-05-17 16:05] VITALS: BP 122/79; TEMP 97.1; O2SAT 96
[2025-05-18 07:01] VITALS: BP 124/84; TEMP 97.6; O2SAT 98
[2025-05-19 06:24] VITALS: BP 118/71; TEMP 97; O2SAT 99
[2025-05-19] MEDS: MAALOX 30 ML SUSP *UDC PO PRN (09:44)
[2025-05-19 18:37] VITALS: BP 128/72; TEMP 97; O2SAT 99
[2025-05-20 06:22] VITALS: BP 131/79; TEMP 97.2; O2SAT 97
[2025-05-20] MEDS: clonazePAM 0.5 MG TAB PO SCH (15:28)
[2025-05-20] MEDS ORDERED: LURASIDONE HCL 20 MG TAB PO SCH (18:00)
[2025-05-20 18:53] VITALS: BP 125/79; TEMP 97.7; O2SAT 97
[2025-05-20] MEDS: RISPERIDONE 1 MG TAB PO SCH (20:19)
[2025-05-20] MEDS: DIVALPROEX 250 MG TAB PO SCH (20:19)
[2025-05-21 07:06] VITALS: BP 131/84; TEMP 96.9; O2SAT 100
[2025-05-21 16:27] VITALS: BP 120/60; TEMP 98.3; O2SAT 95
[2025-05-21] MEDS: DIVALPROEX 500 MG TAB PO SCH (21:30)
[2025-05-22 06:53] VITALS: BP 131/60; TEMP 97.6; O2SAT 100
[2025-05-22] MEDS: DIVALPROEX 250 MG TAB PO SCH (08:26)
[2025-05-22 15:53] VITALS: BP 115/79; TEMP 97.2; O2SAT 98
[2025-05-23 06:47] VITALS: BP 138/79; TEMP 97.4; O2SAT 98
[2025-05-24 06:32] VITALS: BP 103/55; TEMP 97.8; O2SAT 98
[2025-05-24 07:26] LABS: VALPROIC ACID (DEPAKOTE) 60.3 UG/ML (50.0-100.0)
[2025-05-24 07:30] LABS: PROLACTIN 71.74 NG/ML
[2025-05-24 18:42] VITALS: BP 116/71; TEMP 97.3; O2SAT 98
[2025-05-25 06:48] VITALS: BP 125/70; TEMP 97.7; O2SAT 99
[2025-05-25 08:52] VITALS: BP 125/69; TEMP 97.6; O2SAT 100
[2025-05-25 16:28] VITALS: BP 118/71; TEMP 97.7; O2SAT 100
[2025-05-25] MEDS ORDERED: clonazePAM 0.5 MG TAB PO PRN (20:00)
[2025-05-25] MEDS: ACETAMINOPHEN 325 MG TAB PO PRN (22:53)
[2025-05-26 06:46] VITALS: BP 118/64; TEMP 97.1; O2SAT 99
[2025-05-26] MEDS: RISPERIDONE 1 MG TAB PO SCH (08:03)
[2025-05-26] MEDS ORDERED: QUET100T2 PO (08:41)
[2025-05-26] MEDS ORDERED: BENZ1TAB5 PO (08:41)
[2025-05-26] MEDS ORDERED: DIVA-41 PO (08:41)
[2025-05-26] MEDS ORDERED: DIVA-65 PO (08:41)
[2025-05-26] MEDS ORDERED: RISP-105 PO (08:41)
== END 2025-05-26 11:20 | disposition home or self-care (01) | DRG 753 ==
LOC: M ED 20:18 → M ED INP 05-10 01:32 → M PSY 05-10 09:08
PROVIDERS: ADMIT Student in an Organized Health Care Education/Training Program; ATTEND Student in an Organized Health Care Education/Training Program
DX: F31.9 Bipolar disorder, unspecified (principal); F41.1 Generalized anxiety disorder; R45.851 Suicidal ideations; Z79.899 Other long term (current) drug therapy

== ENCOUNTER → 2025-06-15 | Outpatient (REF) | payer OTHER ==
[~2025-06-15] MED LIST changes: +BENZ1TAB5 PO; +DIVA-41 PO; +DIVA-65 PO; +MELA10TA30 PO; +QUET100T2 PO; +QUET150T18 PO; -RA M10TA PO; +RISP-105 PO; +ZIPR40CA27 PO; +ZIPR80CA31 PO
[2025-06-15 18:00] LABS: IRON (FE) 69.0 UG/DL (50-170); PERCENT SATURATION 16.7 % (13.2-45.0)
[2025-06-15 18:02] LABS: VITAMIN B12 LEVEL 644.0 PG/ML (211-911)
== END ==
LOC: M LAB REF 17:24
PROVIDERS: ATTEND Internal Medicine
DX: D50.9 Iron deficiency anemia, unspecified (principal)

== ENCOUNTER 2025-06-29 06:45 | Inpatient (IN) | payer OTHER ==
[~2025-06-29] VITALS: Ht 162.6 cm; Wt 86.0 kg
[2025-06-29 07:48] LABS: PLATELET COUNT, AUTOMATED 495 10^3/uL (150-450)
[2025-06-29 08:10] LABS: ETHYL ALCOHOL (ETHANOL) < 0.003 % (0.000-0.010)
[2025-06-29] MEDS: NS (Normal Saline) 0.9% 1,000 ML IV SCH (08:10)
[2025-06-29 08:11] LABS: HCG, SERUM QUALITATIVE NEGATIVE (NEGATIVE)
[2025-06-29 08:12] LABS: ALT/SGPT 52 U/L (7.0-40); AST/SGOT 38 U/L (<34); CALCIUM LEVEL 9.0 MG/DL (8.5-10.1); CARBON DIOXIDE LEVEL 26 MMOL/L (20-31); CHLORIDE LEVEL 104 MMOL/L (98-107); CREATININE FOR GFR 0.71 MG/DL (0.55-1.30); GLOMERULAR FILTRATION RATE > 90.0 (>58); POTASSIUM SERUM 4.1 MMOL/L (3.5-5.1); SALICYLATE LEVEL < 3.0 MG/DL (<30); SODIUM LEVEL 139 MMOL/L (136-145)
[2025-06-29 08:20] LABS: AMPHETAMINES LEVEL URINE NEGATIVE (NEGATIVE); BARBITURATES URINE NEGATIVE (NEGATIVE); BENZODIAZEPINES URINE NEGATIVE (NEGATIVE); COCAINE METABOLITE URINE NEGATIVE (NEGATIVE); METHADONE URINE NEGATIVE (NEGATIVE)
[2025-06-29 08:21] LABS: CANNABINOIDS URINE NEGATIVE (NEGATIVE); OPIATES URINE NEGATIVE (NEGATIVE); PHENCYCLIDINE URINE NEGATIVE (NEGATIVE)
[2025-06-29 10:00] LABS: VALPROIC ACID (DEPAKOTE) < 3.0 UG/ML (50.0-100.0)
[2025-06-29] MEDS ORDERED: QUET100T2 PO (10:42)
[2025-06-29] MEDS ORDERED: RISP125S SQ (10:42)
[2025-06-29] MEDS ORDERED: HOME MED LIST COMPLETE! XX SCH (10:45)
[2025-06-29 13:42] LABS: VALPROIC ACID (DEPAKOTE) < 3.0 UG/ML (50.0-100.0)
[2025-06-29 13:45] LABS: ALT/SGPT 47 U/L (7.0-40); AST/SGOT 34 U/L (<34); CALCIUM LEVEL 9.0 MG/DL (8.5-10.1); CARBON DIOXIDE LEVEL 25 MMOL/L (20-31); CHLORIDE LEVEL 108 MMOL/L (98-107); CREATININE FOR GFR 0.59 MG/DL (0.55-1.30); GLOMERULAR FILTRATION RATE > 90.0 (>58); POTASSIUM SERUM 4.4 MMOL/L (3.5-5.1); SODIUM LEVEL 141 MMOL/L (136-145)
[2025-06-29] MEDS: clonazePAM 0.5 MG TAB PO PRN (16:45)
[2025-06-29] MEDS ORDERED: MAALOX 30 ML SUSP *UDC PO PRN (17:35)
[2025-06-29] MEDS ORDERED: MOM 30 ML SUSPENSION UDC PO PRN (17:35)
[2025-06-29] MEDS ORDERED: IBUPROFEN 400 MG TAB PO PRN (17:35)
[2025-06-29] MEDS: traZODone 50 MG TAB PO SCH (20:07)
[2025-06-29 21:17] VITALS: BP 152/78; TEMP 98.2; O2SAT 96
[2025-06-29] MEDS: ChlorproMAZINE 100 MG TABLET PO ONE (21:49)
[2025-06-30] MEDS: OLANZapine ORAL DISINTEGRATING TAB 5MG PO PRN (08:26)
[2025-06-30] MEDS: RISPERIDONE 1 MG TAB PO SCH (08:26)
[2025-06-30] MEDS ORDERED: ZINC SULFATE 220 MG CAP PO SCH (09:00)
[2025-06-30 19:01] VITALS: BP 125/65; TEMP 98
[2025-06-30] MEDS: clonazePAM 0.5 MG TAB PO SCH (20:32)
[2025-07-01 06:26] VITALS: BP 138/64; TEMP 97; O2SAT 97
[2025-07-01 15:16] VITALS: BP 113/83; TEMP 97.8; O2SAT 98
[2025-07-01] MEDS: traZODone 50 MG TAB PO PRN (20:25)
[2025-07-02] MEDS: ACETAMINOPHEN 325 MG TAB PO PRN (05:50)
[2025-07-02 06:32] VITALS: BP 107/58; TEMP 97.9; O2SAT 99
[2025-07-02 15:33] VITALS: BP 125/59; TEMP 98.8; O2SAT 99
[2025-07-02 21:15] VITALS: BP 125/59; TEMP 98.8; O2SAT 99
[2025-07-03 06:24] VITALS: BP 116/82; TEMP 97.9; O2SAT 99
== END 2025-07-03 12:06 | disposition home or self-care (01) | DRG 753 ==
LOC: M ED 06:45 → M ED INP 17:35 → M PSY 21:26
PROVIDERS: ADMIT Student in an Organized Health Care Education/Training Program; ATTEND Student in an Organized Health Care Education/Training Program
DX: F31.9 Bipolar disorder, unspecified (principal); F41.1 Generalized anxiety disorder; F60.7 Dependent personality disorder; R45.851 Suicidal ideations; Z88.0 Allergy status to penicillin; Z79.899 Other long term (current) drug therapy